=== PATIENT | female | born 1955 | race Caucasian/White ===

== ENCOUNTER 2018-09-21 13:35 | Observation (INO) | payer OTHER, MEDICARE, BC ==
[2018-09-21] MEDS ORDERED: HYDROmorphone 0.5 MG/0.5 ML Syringe IVPUSH ONE (14:26)
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
[2018-09-21] MEDS: Sodium Chloride 0.9% 10 ML Syringe FLUSH PRN ×2 (14:59→15:02)
--- NOTE | 2018-09-21 15:55 | CRLCT ---
INDICATION: Trauma. Memory loss. Cervical pain TECHNIQUE: CT head without contrast. COMPARISON: None available FINDINGS: The ventricles and sulci are within normal limits for the patient`s age. A focally prominent extra-axial space in the supra cerebellar cistern is suggestive of an arachnoid cyst. There is no midline shift. There are few small sulcal densities in the frontal lobes, left mildly greater than right, suggestive of small subarachnoid blood. Few white matter hypodensities are suggestive of chronic small vessel ischemic changes. There is no loss of porter-white differentiation. No acute calvarial fractures seen. There is trace left maxillary sinus mucosal thickening. The mastoid air cells are clear. The visualized orbits are within normal limits. IMPRESSION: Small foci of subarachnoid hemorrhage. Correlate with a short-term follow-up study. The findings were discussed with Dr. Quinn, by phone, on 09/21/2018 at 3:45 p.m.. Dictated by Ki Mckenzie MD @ 09/21/2018 3:54:00 PM Please note that all CT scans at this facility use dose modulation, iterative reconstruction, and/or weight-based dosing when appropriate to reduce radiation dose to as low as reasonably achievable. Dictated by: Ki Mckenzie MD @ 09/21/2018 15:54:08 (Electronically Signed)
[2018-09-21] MEDS ORDERED: Lidocaine 4% Top Soln 50 ML Bottle MUCMEM ONE (15:56)
--- NOTE | 2018-09-21 16:05 | CRLCT ---
INDICATION: Injury. Pain TECHNIQUE: CT cervical spine without contrast. COMPARISON: None available FINDINGS: Osteopenia is noted. There is straightening of the cervical lordosis. The craniocervical and atlantoaxial alignments are near anatomical. There is no evidence of an acute cervical spine fracture. There is no significant precervical soft tissue swelling. Degenerative changes are seen at several levels. There are thyroid low-density lesions. IMPRESSION: No evidence of an acute cervical spine fracture. Thyroid lesions. Follow-up with nonemergent sonography. Dictated by Ki Mckenzie MD @ 09/21/2018 4:04:09 PM Please note that all CT scans at this facility use dose modulation, iterative reconstruction, and/or weight-based dosing when appropriate to reduce radiation dose to as low as reasonably achievable. Dictated by: Ki Mckenzie MD @ 09/21/2018 16:04:18 (Electronically Signed)
--- NOTE | 2018-09-21 16:07 | CRLCR ---
Indication: Injury Technique: Two views of the left clavicle Comparison: None available Findings/Impression: Bones: A left humeral head and neck fracture. Glenohumeral subluxation/dislocation is not excluded. Correlate clinically and if indicated, with additional views. No acute clavicular fracture. Joint spaces: Unremarkable. Soft tissues: Unremarkable. Dictated by iK Mckenzie MD @ 09/21/2018 4:06:58 PM Dictated by: Ki Mckenzie MD @ 09/21/2018 16:07:02 (Electronically Signed)
[2018-09-21] MEDS ORDERED: Bacitracin Oint 1 GM U/D Packet TOP ONE (16:16)
--- NOTE | 2018-09-21 16:16 | CRLCR ---
Indication: Injury Technique: Three views of the left elbow Comparison: None available Findings/Impression: Bones: Limited lateral view. No definite displaced fracture or dislocation seen. If indicated, correlate with a true lateral view with better positioning. Joint spaces: Unremarkable. Soft tissues: Unremarkable. Dictated by Ki Mckenzie MD @ 09/21/2018 4:09:41 PM Dictated by: Ki Mckenzie MD @ 09/21/2018 16:14:21 (Electronically Signed)
--- NOTE | 2018-09-21 16:29 | CRLCR ---
INDICATION: Left shoulder pain TECHNIQUE: Three views left shoulder COMPARISON: None FINDINGS: Bones: Left humeral neck fracture with the fracture possibly extending into the greater tuberosity. Joint spaces: Unremarkable. Soft tissues: Unremarkable. IMPRESSION: Left humeral neck fracture with fracture possibly extending into the greater tuberosity. Dictated by Sudheer Urbina MD @ 09/21/2018 4:27:43 PM Dictated by: Sudheer Urbina MD @ 09/21/2018 16:27:49 (Electronically Signed)
[2018-09-21] MEDS ORDERED: Ondansetron 4 MG/2 ML SDV IV PRN (17:05)
[2018-09-21] MEDS ORDERED: Acetaminophen 325 MG Tab PO PRN (17:05)
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
[2018-09-21] MEDS: Acetaminophen/HYDROcodone 325-5 MG Tab PO PRN (21:03)
[2018-09-22] MEDS: Acetaminophen/HYDROcodone 325-5 MG Tab PO PRN ×2 (00:57→05:44)
--- NOTE | 2018-09-22 08:13 | CRLCT ---
INDICATION: Follow up subarachnoid hemorrhage. COMPARISON: Head CT dated 09/21/2018 TECHNIQUE: A CT volumetric acquisition was performed of the brain without IV contrast. FINDINGS: There is no evidence of a subdural or epidural hematoma. As compared to yesterday`s exam there is decreased conspicuity of the a subtle increased density change within a sulcus within the left frontal lobe. There is no evidence of new abnormal foci of increased density which would indicate areas of new bleeding. There is no evidence of localized mass effect upon the sulci. The CT images reveal a normal appearance of the cerebral ventricles and basal cisterns. There is a stable right supra cerebellar cistern arachnoid cyst. There is no evidence of localized tissue infarction. There is normal porter white matter differentiation. Atherosclerotic changes are evident within the carotid arteries. The mastoid air cells and middle ear cavities are clear. The calvarium appears intact. There is normal aeration of the visualized paranasal sinuses. IMPRESSION: Decrease conspicuity of the areas of subarachnoid hemorrhage. No new bleeding identified. Dictated by Domenic Borrero MD @ 09/22/2018 8:12:11 AM Please note that all CT scans at this facility use dose modulation, iterative reconstruction, and/or weight-based dosing when appropriate to reduce radiation dose to as low as reasonably achievable. Dictated by: Domenic Borrero MD @ 09/22/2018 08:12:17 (Electronically Signed)
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
== END 2018-09-22 11:11 | disposition home or self-care (01) ==
LOC: JP.ED 13:35 → JP.ICU 17:05
PROVIDERS: ADMIT Family Medicine; ATTEND Family Medicine
DX: S06.6X9A Traumatic subarachnoid hemorrhage with loss of consciousness of unspecified duration, initial encounter (principal); S42.212A Unspecified displaced fracture of surgical neck of left humerus, initial encounter for closed fracture; I10 Essential (primary) hypertension; M19.90 Unspecified osteoarthritis, unspecified site; Y93.55 Activity, bike riding; Y92.830 Public park as the place of occurrence of the external cause; Z79.899 Other long term (current) drug therapy
CPT/HCPCS: 36415; 70450; 72125; 73000; 73030; 73070; 80048; 85025; 96374; 99285; A9270; G0378; J1170; 99203